=== PATIENT | female | born 1935 | race Hispanic/Latino ===

== ENCOUNTER 2017-01-15 11:15 | Outpatient (CLI) | payer MEDICARE ==
--- NOTE | 2017-01-15 12:45 | Mammography Report ---
Unilateral right mammogram: Compared to 01/14/16. CAD study utilized. Findings: Predominance of adipose tissue bilaterally. Benign calcifications. No mass. Benign axillary node. Impression: Benign findings. Annual followup recommended.
== END 2017-01-15 11:16 | disposition home or self-care (01) ==
LOC: MAMMO 11:15
PROVIDERS: ATTEND Internal Medicine Hematology & Oncology
DX: Z12.31 Encounter for screening mammogram for malignant neoplasm of breast (principal)
CPT/HCPCS: G0202-52

== ENCOUNTER 2018-08-26 09:32 | Outpatient (CLI) | payer MEDICARE ==
[2018-08-26 10:44] LABS: Blood Urea Nitrogen 7 mg/dL (7-17)
--- NOTE | 2018-08-27 09:23 | Magnetic Resonance Report ---
EXAM: MR CHEST WO/W CON HISTORY: ABNORMAL CHEST XRAY TECHNIQUE: Multiplanar (axial and coronal) T1 and T2-weighted images are obtained through the chest w ithout the administration of gadolinium. Multiplanar T1-weighted images are obtained with the adminis tration of 16 cc of intravenous gadolinium/MultiHance. 2-D vascular MIP images are reformatted. COMPARISON: Chest CT dated December 17, 2012. FINDINGS: CARDIOVASCULAR: There is no evidence for gross intravascular filling defect is seen. The heart size a nd mediastinal vascular structures are within normal limits. There is no significant aortic or coron erasto atherosclerosis seen. No thoracic aortic aneurysm or dissection is noted. MEDIASTINUM AND JAYJAY: No mass lesion, lymphadenopathy, emphysema, or abnormal fluid collection is see n. LUNGS: There is no acute parenchymal infiltrate, lung nodule, or endobronchial obstructing lesion see n. No pleural effusion or pneumothorax is evident. CHEST WALL: Status post left mastectomy. No gross right breast mass lesion or abnormal signal intensi ty is seen. There are no chest wall lesions seen. The visualized bony structures are within normal l imits. No axillary lymphadenopathy is noted. UPPER ABDOMEN: Limited views through the upper abdomen demonstrate no gross acute abnormality. IMPRESSION: 1. No evidence for gross intracardiac or intravascular filling defect. 2. No evidence for aortic aneurysm or aortic dissection. 3. No acute parenchymal infiltrate, pleural effusion, or pneumothorax seen. 4. No suspicious mass or lymphadenopathy seen. 5. Status post left mastectomy. This document is electronically signed by Sondra Bateman MD., August 27 2018 09:20:47 AM ET
== END 2018-08-26 09:33 | disposition home or self-care (01) ==
LOC: MRI 09:32
PROVIDERS: ATTEND Internal Medicine
DX: R93.89 Abnormal findings on diagnostic imaging of other specified body structures (principal); K21.9 Gastro-esophageal reflux disease without esophagitis; J43.9 Emphysema, unspecified; I10 Essential (primary) hypertension; Z90.710 Acquired absence of both cervix and uterus; Z90.12 Acquired absence of left breast and nipple
CPT/HCPCS: 36415; 71552; 82565; 84520; A9577

== ENCOUNTER 2019-02-17 13:16 | Outpatient (CLI) | payer MEDICARE ==
--- NOTE | 2019-02-17 16:20 | Mammography Report ---
DIGITAL SCREENING MAMMOGRAM WITH CAD, 02/17/2019 INDICATION: Routine screening mammography. Breast cancer survivor status post left mastectomy in 1998 . TECHNIQUE: Digital bilateral 2D mammography was obtained in the craniocaudal and mediolateral obliq ue projections. This examination was interpreted with the benefit of Computer-Aided Detection analysi s. COMPARISON: 02/09/2018 FINDINGS: Breast Density: The breast is heterogeneously dense, which may obscure small masses. There is no evidence of dominant mass, suspicious calcifications or architectural distortion in the r ight breast. IMPRESSION: No mammographic evidence of malignancy. Follow up recommendation: Routine yearly BI-RADS Category 1: Negative. A "normal" or negative report should not discourage follow up or biopsy of a clinically significant f inding. A written summary of these findings will be mailed to the patient. The patient will be entered into a mammography reporting system which will generate a reminder letter for the patient's next appointmen t at the appropriate interval. The [employer] recommends yearly mammograms starting at age 40 and continuing as l shavonne as a woman is in good health. Breast MRI is recommended for women with an approximate 20-25% or greater lifetime risk of breast cancer, including women with a strong family history of breast or ova ayanna cancer or who have been treated for Hodgkin's disease. Signer Name: Pramod Cuellar MD Signed: 02/17/2019 4:16 PM Workstation Name: [id number]
== END 2019-02-17 13:17 | disposition home or self-care (01) ==
LOC: MAMMO 13:16
PROVIDERS: ATTEND Internal Medicine
DX: Z12.31 Encounter for screening mammogram for malignant neoplasm of breast (principal)

== ENCOUNTER 2020-02-28 13:11 | Outpatient (CLI) | payer MEDICARE ==
--- NOTE | 2020-02-29 08:16 | Mammography Report ---
DIGITAL SCREENING MAMMOGRAM WITH CAD, 02/28/2020 INDICATION: Routine screening mammography. TECHNIQUE: Digital right 2D mammography was obtained in the craniocaudal and mediolateral oblique pr ojections. This examination was interpreted with the benefit of Computer-Aided Detection analysis. COMPARISON: 02/09/2018 FINDINGS: Breast Density: There are scattered areas of fibroglandular density. There is no evidence of dominant mass, suspicious calcifications or architectural distortion in the r ight breast. No interval change. IMPRESSION: No evidence of malignancy. However, patient did report to the technologist feeling an are a of "hardness" behind the nipple and lateral to the nipple. Based on clinical exam, patient may need to return for right breast ultrasound. Follow up recommendation: Routine yearly. However, please correlate with physical exam as to whether further evaluation with ultrasound is required based on patient's complaint of subareolar hardness. BI-RADS Category 1: Negative. A "normal" or negative report should not discourage follow up or biopsy of a clinically significant f inding. A written summary of these findings will be mailed to the patient. The patient will be entered into a mammography reporting system which will generate a reminder letter for the patient's next appointmen t at the appropriate interval. The [employer] recommends yearly mammograms starting at age 40 and continuing as l shavonne as a woman is in good health. Breast MRI is recommended for women with an approximate 20-25% or greater lifetime risk of breast cancer, including women with a strong family history of breast or ova ayanna cancer or who have been treated for Hodgkin's disease. Signer Name: Tiffany Singleton MD Signed: 02/29/2020 8:11 AM Workstation Name: [id number]
== END 2020-02-28 13:12 | disposition home or self-care (01) ==
LOC: MAMMO 13:11
PROVIDERS: ATTEND Internal Medicine
DX: Z12.31 Encounter for screening mammogram for malignant neoplasm of breast (principal)

== ENCOUNTER 2020-03-20 13:07 | Outpatient (CLI) | payer MEDICARE ==
--- NOTE | 2020-03-20 14:49 | Ultrasound Report ---
ULTRASOUND BREAST , 03/20/2020 CLINICAL INFORMATION / INDICATION: Patient felt a hard area near the areola but does not palpate sara t area today.. TECHNIQUE: Targeted ultrasound evaluation was performed of the area of interest. COMPARISON: Recent mammogram 02/28/2020 FINDINGS: Sonographic evaluation shows some mild ductal ectasia but no evidence for mass, cyst, or abnormal are a of shadowing. IMPRESSION: No sonographic evidence of malignancy. Follow up recommendation: Resumption of annual screening mammography as well as clinical correlation for history of palpable lump. BI-RADS Category 2: Benign. A normal or "negative" report should not preclude biopsy or follow-up of a clinically suspicious find ing. Signer Name: Tiffany Singleton MD Signed: 03/20/2020 2:45 PM Workstation Name: [email or web address]
== END 2020-03-20 13:08 | disposition home or self-care (01) ==
LOC: MAMMO 13:07
PROVIDERS: ATTEND Internal Medicine
DX: N60.41 Mammary duct ectasia of right breast (principal); N63.10 Unspecified lump in the right breast, unspecified quadrant; N64.59 Other signs and symptoms in breast; R92.8 Other abnormal and inconclusive findings on diagnostic imaging of breast

== ENCOUNTER 2021-01-10 13:12 | Outpatient (CLI) | payer MEDICARE ==
--- NOTE | 2021-01-10 14:18 | XRay Report ---
CHEST 2 VIEWS INDICATION / CLINICAL INFORMATION: J44.9 COPD. COMPARISON: None available. FINDINGS: SUPPORT DEVICES: None. HEART / MEDIASTINUM: No significant abnormality. LUNGS / PLEURA: No acute pulmonary abnormality. No focal infiltrate is seen. There is hyperinflation of the lungs. No pneumothorax. ADDITIONAL FINDINGS: No significant additional findings. IMPRESSION: 1. There is hyperinflation lungs characteristic of chronic changes of COPD.. No focal infiltrate is s een. Signer Name: Noah Medina MD Signed: 01/10/2021 2:13 PM Workstation Name: [id number]
== END 2021-01-10 13:13 | disposition home or self-care (01) ==
LOC: XRAY 13:12
DX: J44.9 Chronic obstructive pulmonary disease, unspecified (principal); R91.8 Other nonspecific abnormal finding of lung field
CPT/HCPCS: 71046

== ENCOUNTER 2021-03-08 13:36 | Outpatient (CLI) | payer MEDICARE ==
--- NOTE | 2021-03-11 10:21 | Mammography Report ---
DIGITAL SCREENING MAMMOGRAM WITH CAD, 03/08/2021 CLINICAL INFORMATION / INDICATION: Routine screening mammography. SCREENING MAMMOGRAM TECHNIQUE: Digital right 2D mammography was obtained in the craniocaudal and mediolateral oblique pr ojections. This examination was interpreted with the benefit of Computer-Aided Detection analysis. COMPARISON: 02/28/2020 FINDINGS: Breast Density: There are scattered areas of fibroglandular density. No dominant mass, suspicious calcifications, or architectural distortion in the right breast. IMPRESSION: No mammographic evidence of malignancy. Follow up recommendation: Routine yearly BI-RADS Category 1: NEGATIVE A "normal" or negative report should not discourage follow up or biopsy of a clinically significant f inding. A written summary of these findings will be mailed to the patient. The patient will be entered into a mammography reporting system which will generate a reminder letter for the patient's next appointmen t at the appropriate interval. The [employer] recommends yearly mammograms starting at age 40 and continuing as l shavonne as a woman is in good health. Breast MRI is recommended for women with an approximate 20-25% or greater lifetime risk of breast cancer, including women with a strong family history of breast or ova ayanna cancer or who have been treated for Hodgkin's disease. Signer Name: Elieser Lutz MD Signed: 03/11/2021 10:16 AM Workstation Name: [id number]
== END 2021-03-08 13:37 | disposition home or self-care (01) ==
LOC: MAMMO 13:36
PROVIDERS: ATTEND Internal Medicine
DX: Z12.31 Encounter for screening mammogram for malignant neoplasm of breast (principal)